=== PATIENT | male | born 1990 | race Two or more races ===

== ENCOUNTER 2020-04-27 05:50 | Day surgery (SDC) | payer OTHER ==
[~2020-04-27 05:50] MED LIST: KETO10TA2 PO; MULTI VITAMIN1 EACH; ORPH100T PO
== END 2020-04-27 09:30 | disposition home or self-care (01) ==
LOC: AMB-ENDOS 05:50
PROVIDERS: ATTEND Surgery
DX: K63.5 Polyp of colon (principal); K64.8 Other hemorrhoids; Z20.828 Contact with and (suspected) exposure to other viral communicable diseases

== ENCOUNTER 2021-01-05 08:00 | Outpatient (CLI) | payer OTHER | END 2021-01-05 08:30 | disposition home or self-care (01) | LOC: PPH VACUNA 08:00 | PROVIDERS: ATTEND Emergency Medicine Pediatric Emergency Medicine | DX: Z23 Encounter for immunization (principal) ==

== ENCOUNTER 2021-02-07 08:00 | Outpatient (CLI) | payer OTHER | END 2021-02-07 08:30 | disposition home or self-care (01) | LOC: PPH VACUNA 08:00 | PROVIDERS: ATTEND Emergency Medicine Pediatric Emergency Medicine | DX: Z23 Encounter for immunization (principal) ==

== ENCOUNTER 2021-07-13 08:30 | Outpatient (CLI) | payer OTHER | END 2021-07-13 08:34 | disposition home or self-care (01) | LOC: LAB 08:30 | DX: U07.1 COVID-19 (principal) ==

== ENCOUNTER → 2021-08-08 06:12 | Outpatient (CLI) | payer OTHER | END | disposition home or self-care (01) | LOC: LAB 06:12 | PROVIDERS: ATTEND Anesthesiology Pain Medicine | DX: Z11.51 Encounter for screening for human papillomavirus (HPV) (principal); Z11.3 Encounter for screening for infections with a predominantly sexual mode of transmission; A64 Unspecified sexually transmitted disease ==

== ENCOUNTER 2021-12-01 08:00 | Outpatient (CLI) | payer OTHER | END 2021-12-01 08:05 | disposition home or self-care (01) | LOC: PPH VACUNA 08:00 | PROVIDERS: ATTEND Emergency Medicine Pediatric Emergency Medicine | DX: Z23 Encounter for immunization (principal) ==

== ENCOUNTER → 2022-03-29 | Emergency (ER) | payer OTHER ==
[~2022-03-29] VITALS: Ht 182.9 cm; Wt 88.0 kg
[~2022-03-29] MED LIST changes: +CLARITIN-D 121 EACH PO; +OSEL75CA PO; +TUSSIN DM SYRU118 ML PO; +ZITHROMAX500 MG PO
== END | disposition home or self-care (01) ==
LOC: ER 14:57
DX: J09.X2 Influenza due to identified novel influenza A virus with other respiratory manifestations (principal)

== ENCOUNTER 2022-07-23 20:23 | Emergency (ER) | payer OTHER ==
[~2022-07-23] VITALS: Ht 182.9 cm; Wt 83.5 kg
== END 2022-07-23 22:49 | disposition home or self-care (01) ==
LOC: ER 20:23
DX: R10.9 Unspecified abdominal pain (principal)

== ENCOUNTER 2022-07-26 07:33 | Outpatient (CLI) | payer OTHER | END 2022-07-26 07:40 | disposition home or self-care (01) | LOC: SONOGRAMA 07:33 | PROVIDERS: ATTEND Urology | DX: N20.1 Calculus of ureter (principal) ==

== ENCOUNTER 2022-12-01 07:26 | Outpatient (CLI) | payer OTHER | END 2022-12-01 07:36 | disposition home or self-care (01) | LOC: PPH VACUNA 07:26 | PROVIDERS: ATTEND Emergency Medicine Pediatric Emergency Medicine | DX: Z23 Encounter for immunization (principal) | CPT/HCPCS: 90686; G0008 ==

== ENCOUNTER 2023-10-17 07:32 | Outpatient (CLI) | payer OTHER | END 2023-10-17 07:35 | disposition home or self-care (01) | LOC: RAD 07:32 | PROVIDERS: ATTEND Surgery Surgery of the Hand | DX: M15.0 Primary generalized (osteo)arthritis (principal) ==